=== PATIENT | male | born 1950 | race Caucasian/White ===

== ENCOUNTER 2016-10-05 12:10 | Emergency (ER) | payer OTHER ==
[~2016-10-05] VITALS: Ht 177.8 cm; Wt 90.0 kg
[2016-10-05 16:52] VITALS: BP 128/68
[2016-10-05 17:22] LABS: APPEARANCE HAZY-YELLOW; MONONUCLEAR WBC'S 8 %; POLYNUCLEAR WBC'S 92 % (0-25); RED CELL COUNT 22000 /MM^3 (0-1); SYNOVIAL FLUID EOSINOPHILS 0 % (0-25); WHITE CELL COUNT 19365 /MM^3 (0-200.0)
[2016-10-06 07:09] LABS: CRYSTALS NO CRYSTALS SEEN
== END 2016-10-05 16:53 | disposition home or self-care (01) ==
LOC: EME 12:10
PROVIDERS: Physician Assistant
PROC: 0S9C3ZZ Drainage of Right Knee Joint, Percutaneous Approach (ICD-10-PCS; principal; 2016-10-05)
DX: M23.91 Unspecified internal derangement of right knee (principal); M25.461 Effusion, right knee; Z87.828 Personal history of other (healed) physical injury and trauma
CPT/HCPCS: 73564; 87205; 89051; 99281; 99284